=== PATIENT | female | born 1980 | race Caucasian/White ===

== ENCOUNTER 2022-10-05 08:48 | Day surgery (SDC) | payer OTHER, SELFPAY ==
[2022-09-21 13:46] VITALS: BMI 36.2
[2022-09-25 09:21] VITALS: BMI 36.1
--- NOTE | 2022-10-03 06:41 | P.HP_ITS ---
H&P: HPI History of Present Illness Date/Time: 10/03/22 06:41 Chief Complaint: excessive heavy bleeding Narrative: this is a 42-year-old female admitted for hysteroscopy dilatation curettage secondary to heavy bleeding risks and benefits reviewed in great detail. She had all questions answered and asked to proceed [facility] Social History Social History Years smoked: 20 Smoking status: Current every day smoker Tobacco type: cigarettes Alcohol intake: current Substance use: never Substance use type: does not use Living arrangements: with family Spiritual care concerns: No Meds Home Medications and Allergies Home Medications Medication Instructions Recorded Confirmed Type alendronate 70 mg-cholecalciferol 1 tablet PO WEEKLY 09/25/22 09/25/22 History (vitamin D3) 2,800 unit tablet cyanocobalamin (vitamin B-12) 500 500 mcg PO 2XW 09/25/22 09/25/22 History mcg tablet (Vitamin B-12) Allergies Allergy/AdvReac Type Severity Reaction Status Date / Time codeine AdvReac Unknown ITCHING Verified 09/25/22 09:12 hydrocodone AdvReac Unknown ITCHING Verified 09/25/22 09:12 Exam Const: General: cooperative, healthy appearing, comfortable and overweight Orientation/consciousness: oriented to person, oriented to place and oriented to time HENMT: Head: normal to inspection Resp: Effort & Inspection: normal respiratory effort Cardio: Rate: regular rate Rhythm: regular rhythm Heart sounds: S1 normal heart sound present and S2 normal heart sound present GI: Inspection: normal to inspection : External Female Exam: normal external appearance Speculum Exam - Vagina: normal appearance of the vagina Speculum Exam - Cervix: normal appearance of the cervix Bimanual exam- vagina & uterus: non-tender Bimanual Exam- Adnexa, other: normal adnexae Assessment and Plan Assessment and plan (1) Heavy menstrual bleeding: Code(s): N92.0 - Excessive and frequent menstruation with regular cycle Status: Acute Plan hysteroscopy/dilatation curettage
--- NOTE | 2022-10-05 05:52 | WPDHPUPDATE1 ---
History and Physical Update Update Date/Time: 10/05/22 05:52 History and Physical has been reviewed, including an updated exam of the patient. There are NO changes in the patient's condition. Risks, benefits, and alternatives have been discussed and questions answered. Patient agrees to proceed with procedure.
[2022-10-05 10:49] VITALS: BP 117/85; PULSE 63; RESP 14; TEMP 36.4; O2SAT 100
[2022-10-05] MEDS: LACTATED RINGERS 1,000 ML 30 ML IV CONT (11:06)
--- NOTE | 2022-10-05 11:28 | SUR.PREOP ---
In Pt's medical history it states, other anesthesia reactions: post-op fevers 72 hours after. Pt states this occurs every time she has anesthesia and has had no other symptoms other than a fever. Pt states they ran all sorts of tests and never were able to figure it out but I always do fine. Dr. Ochoa made aware, no new orders at this time.
--- NOTE | 2022-10-05 11:31 | P.PNAN_ITS ---
Anes - Initial Pre Proc Eval Procedure: Operation Date: 10/05/22 12:00 Proposed Procedures p Hysteroscopy, Dilation & Curettage with Polypectomy - Dameon Villalobos MD Date/Time: 10/05/22 11:31 Surgeon: Dameon Villalobos MD Pre Op Diagnosis: Heavy Bleeding and Uterine Polyp Patient Data Age: 42 Gender: F Height: 1.63 m Weight: 95.8 kg Last Vital Signs Temp 36.4 C L 10/05/22 10:49 Pulse 63 10/05/22 10:49 Resp 14 10/05/22 10:49 BP 117/85 10/05/22 10:49 Pulse Ox 100 10/05/22 10:49 O2 Del Method Room Air 10/05/22 10:49 Allergies Allergy/AdvReac Type Severity Reaction Status Date / Time codeine AdvReac Unknown ITCHING Verified 10/05/22 10:44 hydrocodone AdvReac Unknown ITCHING Verified 10/05/22 10:44 Home Medications Medication Instructions Recorded Confirmed Type alendronate 70 mg-cholecalciferol 1 tablet PO WEEKLY 09/25/22 10/05/22 History (vitamin D3) 2,800 unit tablet cyanocobalamin (vitamin B-12) 500 500 mcg PO 2XW 09/25/22 10/05/22 History mcg tablet (Vitamin B-12) hydrocodone 5 mg-acetaminophen 325 1 tablet PO Q4H PRN pain #10 tabs 10/05/22 Rx mg tablet Patient hx anesthesia problems: none Family hx anesthesia problems: none Results Review: All pre-operative results and documents have been reviewed as part of the pre- operative evaluation. [facility] Past Medical History Medical History Overweight Smoker Surgical History Surgical History (Updated 10/05/22 @ 11:32 by Dameon Ochoa MD) H/O exploratory laparotomy H/O oophorectomy History of bowel resection at time of oophorectomy Social History Social History Years smoked: 20 Smoking status: Current every day smoker Tobacco type: cigarettes Alcohol intake: current Substance use: never Substance use type: does not use Living arrangements: with family Spiritual care concerns: No Anes - Eval Final PreProcedure Day of Procedure 10/05/22 11:31 Patient weight: normal Heart: regular rate and rhythm Lungs: clear to auscultation Airway: Mallampati scale class II Neurological: alert and oriented Last oral intake: >/= 8 hours ASA classification: II Emergent: no Anesthetic plan: proceed Anesthesia type and monitoring: general GIVS and standard monitoring Results Review: All pre-operative results and documents have been reviewed as part of the pre- operative evaluation. Informed Consent: The patient's anesthetic plan and its attendant risks and benefits were discussed with the patient/family/POA. Questions were solicited and answers provided to the satisfaction of the patient/family/POA.
[2022-10-05] MEDS: LIDOCAINE HCL 1% LOCAL INJ 20 ML VIAL 10 ML INFILTRATE (12:08)
--- NOTE | 2022-10-05 12:15 | P.OP_ITS ---
Procedure Note - Detailed Date of Procedure 10/05/22 Pre-op Diagnosis Heavy Bleeding and Uterine Polyp Post-op Diagnosis Other (Abnormal uterine bleeding) Procedure Performed hysteroscopy/dilatation curettage Surgeon Dameon Villalobos MD Anesthesia MAC and Local Indications this is a 42-year-old female with history of very heavy periods with what appeared to be a clot on imaging. Findings Few clots were seen in the uterus. Uterus was mildly retroverted 8cm in depth. Each fallopian tube os appeared within normal limits Description of Procedure patient was prepped draped in the normal sterile fashion placed in dorsal lithotomy position. Under excellent IV sedation weighted speculum placed posterior fornix vagina. Anterior lip of the cervix grasped and tenaculum uterus sounded to 8cm 2.5cc 1% xylocaine anesthesia placed at 2 4, 8, 10:00 a.m. of the cervix. Uterus sounded 8cm. Serial dilatation with fragmented dilators followed passes the 5mm visualizing hysteroscope using normal saline as v isualizing several clots were seen in the endometrial tissue was seen but no evidence of polyp. The uterus was then scraped over the entire 360? until good grating sound was heard. Instruments were then withdrawn and the patient was awakened. She went to recovery in satisfactory condition. All sponge, needle, instrument counts were correct. Estimated Blood Loss 5 Drains No Packing No Pathology Yes Complications No immediate complications Condition Stable Disposition PACU
[2022-10-05 12:16] VITALS: BP 110/70; PULSE 63; RESP 14; TEMP 36.3; O2SAT 100
[2022-10-05] MEDS: ACETAMINOPHEN 500 MG TABLET 1000 MG PO (12:24)
[2022-10-05 12:26] VITALS: BP 111/72; PULSE 80; RESP 16; O2SAT 99
--- NOTE | 2022-10-05 12:27 | WPDANESPN ---
Anes - Prog Note Post-Op Date/Time: 10/05/22 12:27 Cardiovascular status: normal Respiratory status: normal Airway patency: baseline Mental status: baseline Post-Op hydration status: normal Vital Signs: Last Vital Signs Temp 36.3 C L 10/05/22 12:16 Pulse 63 10/05/22 12:16 Resp 14 10/05/22 12:16 BP 110/70 10/05/22 12:16 Pulse Ox 100 10/05/22 12:16 O2 Del Method Room Air 10/05/22 12:16 Pain Score (VAS): 0/10 Patient Feedback: Patient satisfied with anesthetic care.
--- NOTE | 2022-10-05 12:30 | SUR.PHASEII ---
tylenol given per order for mild headache, patient reports 0/10 pain related to procedure
[2022-10-05 12:36] VITALS: BP 112/75; PULSE 74; RESP 16; O2SAT 97
--- NOTE | 2022-10-05 12:45 | SUR.PHASEII ---
prescription given to patient for hydrocodone/tylenol. md aware of patient's allergy.
[2022-10-05 12:56] VITALS: BP 112/74; PULSE 76; RESP 16; O2SAT 100
== END 2022-10-05 13:01 | disposition home or self-care (01) ==
PROVIDERS: PCP Physician Assistant; Visit Provider Obstetrics & Gynecology
PROC: 0U5B8ZZ Destruction of Endometrium, Via Natural or Artificial Opening Endoscopic (ICD-10-PCS; CPT 58563; principal; 2022-10-05 12:00)
DX: N93.8 Other specified abnormal uterine and vaginal bleeding (principal)
CPT/HCPCS: 58558

== ENCOUNTER 2022-10-05 09:00 | Outpatient (NON) | payer OTHER, SELFPAY | END 2022-10-05 09:01 | disposition home or self-care (01) | PROVIDERS: PCP Physician Assistant; Visit Provider Obstetrics & Gynecology | DX: D26.1 Other benign neoplasm of corpus uteri (principal) | CPT/HCPCS: 88305 ==

== ENCOUNTER 2022-12-26 12:23 | Outpatient (CLI) | payer OTHER, SELFPAY ==
[2022-12-26 13:02] LABS: Basophils Absolute Auto 0.1 K/mm3 (0.0-0.1); Basophils Percent Auto 0.8 % (0.2-1.2); Eosinophils Absolute Auto 0.2 K/mm3 (0-0.3); Eosinophils Percent Auto 2.7 % (0-4.4); Hemoglobin 13.2 g/dL (12.0-15.0); Immature Granulocyte Absolute 0.02 K/mm3 (0.00-0.031); Immature Granulocyte Percent A 0.3 % (0-0.5); Lymphocytes Absolute Auto 2.49 K/mm3 (0.9-3.2); Lymphocytes Percent Auto 32.5 % (18.3-44.2); Mean Corpuscular HGB Conc 32.2 g/dl (32-36); Mean Corpuscular Volume 93.2 fl (80-100); Mean Platelet Volume 10.2 fl (7.4-10.4); Monocytes Absolute Auto 0.4 K/mm3 (0.1-0.6); Monocytes Percent Auto 5.7 % (2.6-8.5); Neutrophils Absolute Auto 4.4 K/mm3 (1.3-6.7); Platelet Count Result 269 k/mm3 (150-375); Red Cell Distribution Width 12.7 % (11.5-14.5); White Blood Count 7.7 K/mm3 (4.5-10.0)
== END 2022-12-26 12:24 | disposition home or self-care (01) ==
PROVIDERS: PCP Physician Assistant; Visit Provider Obstetrics & Gynecology
DX: Z01.818 Encounter for other preprocedural examination (principal); N92.0 Excessive and frequent menstruation with regular cycle
CPT/HCPCS: 36415; 85025; 86850; 86900; 86901

== ENCOUNTER 2022-12-29 02:54 | Day surgery (SDC) | payer OTHER, SELFPAY ==
[2022-12-25 14:42] VITALS: BMI 36.3
--- NOTE | 2022-12-25 14:47 | PC.NURSE ---
Report to the Outpatient Waiting Room, entrance under the green pavilion located off [facility], at time 7:30 on date 12/29/22. Planned Procedure Time: 9:30. Time changes happen often and if your time is changed the preop area will call you the afternoon before. - You and your visitor will be asked to self-screen and do not enter if you have any COVID symptoms. - A mask is optional within the hospital at this time. Patients may have clear liquids (water, carbonated beverages, clear teas, apple juice) until 3 hours (6:30) prior to surgery with a maximum of 20 ounces. - No food from midnight until time of surgery Take the following medications with a SIP of water the morning of surgery: NONE DO NOT STOP ANY OF YOUR OTHER PRESCRIPTION MEDICATIONS PRIOR TO SURGERY ?EXCEPT THE FOLLOWING Medications to discontinue per physician: VITAMINS/SUPPLEMENTS Date to take last dose: 12/25/22 Please no make-up, nail [place], hairspray, perfume, deodorant, or body powder the day of surgery. No jewelry (including any body piercings) or valuables the day of surgery, leave them at home. Please take a shower or bath the night before, or the morning of, surgery with an antibacterial soap. Wear comfortable, loose fitting clothing. - Jewelry must be removed prior to entering the operating room. Rings and piercings that are not removed may be cut off. - The hospital will not accept responsibility for valuables. - Please leave all valuables, including medications, at home the day of surgery. If you are going home after surgery, a licensed local company hazmat driver must drive you home. - NO public transportation without another adult if you receive anesthesia. - We recommend that an adult stay with you for 24 hours following discharge. - We also recommend that you do not drive, make important decision, drink alcoholic beverages, or take any drugs that were not prescribed by your health care provider for at least 24 hours after your discharge time. Follow any additional instructions given to you from your surgeon. If you or anyone in your household have experienced Covid symptoms in the past week, please notify your surgeon or the nurse liaison at the phone number below for possible testing. Telephone instructions given to PT - REESE HO and asked if any additional questions and then verbalized understanding. Patient advised to call surgeon office or pre surgery nurse liaison [phone] if any additional questions.
--- NOTE | 2022-12-26 16:13 | PM.IMHP ---
H&P: HPI History of Present Illness Date/Time: 12/26/22 16:13 Chief Complaint: Pelvic pain/uterine prolapse/irregular vaginal bleeding Narrative: This is a 42-year-old female 3 para 2 who is admitted for robotic hysterectomy and bilateral salpingectomy secondary to bleeding pain and uterine prolapse. She had a hysteroscopy dilatation curettage bleeding stopped and then restarted and the problem continued and she bled irregularly she the prolapse was started on progesterone and again this was unable to stop bleeding and discomfort. She will undergo hysterectomy and bilateral salpingectomy. Risks and benefits were reviewed including not exclusive of , aspiration, bleeding, transfusion, perforation of bowel, bladder, ureters, or other internal organs with need for open laparotomy. She received the [employer] handout entitled hysterectomy as well a divot G and out. She had all questions answered. She asked to proceed. [facility] Past Medical History Medical History Overweight Smoker Surgical History Surgical History H/O exploratory laparotomy H/O oophorectomy History of bowel resection at time of oophorectomy Social History Social History Years smoked: 10 Smoking status: Current some day smoker Tobacco type: cigarettes Alcohol intake: current Alcohol use details: VERY RARE Substance use: never Substance use type: does not use Living arrangements: with family Spiritual care concerns: No Meds Home Medications and Allergies Home Medications Medication Instructions Recorded Confirmed Type cyanocobalamin (vitamin B-12) 500 500 mcg PO 2XW 09/25/22 12/25/22 History mcg tablet (Vitamin B-12) cetirizine 10 mg tablet (Zyrtec) 10 mg PO DAILY 12/25/22 12/25/22 History Allergies Allergy/AdvReac Type Severity Reaction Status Date / Time codeine Allergy Unknown Rash Verified 12/25/22 14:40 hydrocodone Allergy Unknown Rash Verified 12/25/22 14:40 Exam Const: General: cooperative, healthy appearing and comfortable Nutritional Appearance: overweight Orientation/consciousness: oriented to person, oriented to place and oriented to time HENMT: Head: normal to inspection Resp: Effort & Inspection: normal respiratory effort Cardio: Rate: regular rate Rhythm: regular rhythm Heart sounds: S1 normal heart sound present and S2 normal heart sound present GI: Inspection: normal to inspection : External Female Exam: normal external appearance Speculum Exam - Vagina: normal appearance of the vagina Speculum Exam - Cervix: normal appearance of the cervix Bimanual exam- vagina & uterus: enlarged and Uterine tenderness Bimanual Exam- Adnexa, other: normal adnexae Assessment and Plan Assessment and plan (1) Pelvic pain: Code(s): R10.2 - Pelvic and perineal pain Status: Acute (2) Excessive bleeding: Code(s): R58 - Hemorrhage, not elsewhere classified Status: Acute (3) Uterine prolapse: Code(s): N81.4 - Uterovaginal prolapse, unspecified Status: Acute Plan Robotic total vaginal hysterectomy and bilateral salpingectomy
[2022-12-29] VITALS (9 sets, daily range): BP systolic 100–130; BP diastolic 58–79; PULSE 53–82; RESP 14–18; TEMP 36.1–36.8; O2SAT 94–100
--- NOTE | 2022-12-29 06:42 | WPDHPUPDATE1 ---
History and Physical Update Update Date/Time: 12/29/22 06:42 History and Physical has been reviewed, including an updated exam of the patient. There are NO changes in the patient's condition. Risks, benefits, and alternatives have been discussed and questions answered. Patient agrees to proceed with procedure.
[2022-12-29] MEDS: ACETAMINOPHEN 500 MG TABLET 1000 MG PO (08:00)
[2022-12-29] MEDS: KETOROLAC 15 MG/ML VIAL (*BKC) IV PUSH (08:00)
[2022-12-29] MEDS: LACTATED RINGERS 1,000 ML 30 ML IV CONT ×2 (08:00→10:48)
--- NOTE | 2022-12-29 08:23 | WPDANESEPPF ---
Anes - Initial Pre Proc Eval Procedure: Operation Date: 12/29/22 09:30 Proposed Procedures p Robotic Assisted Total Vaginal Hysterectomy with Bilateral Salpingectomy - Dameon Villalobos MD Date/Time: 12/29/22 08:23 Surgeon: Dameon Villalobos MD Pre Op Diagnosis: Pain, Uterine Prolapse, Bleeding Patient Data Age: 42 Gender: F Height: 1.63 m Weight: 96.2 kg Allergies Allergy/AdvReac Type Severity Reaction Status Date / Time codeine Allergy Unknown Rash Verified 12/29/22 08:24 hydrocodone Allergy Unknown Rash Verified 12/29/22 08:24 Home Medications Medication Instructions Recorded Confirmed Type cyanocobalamin (vitamin B-12) 500 500 mcg PO 2XW 09/25/22 12/25/22 History mcg tablet (Vitamin B-12) cetirizine 10 mg tablet (Zyrtec) 10 mg PO DAILY 12/25/22 12/25/22 History oxycodone-acetaminophen 5 mg-325 1 tablet PO Q4H PRN pain #30 tabs 12/29/22 Rx mg tablet (Percocet) Patient hx anesthesia problems: none Family hx anesthesia problems: none Results Review: All pre-operative results and documents have been reviewed as part of the pre-operative evaluation. [facility] Past Medical History Medical History Overweight Smoker Surgical History Surgical History H/O exploratory laparotomy H/O oophorectomy History of bowel resection at time of oophorectomy Social History Social History Years smoked: 10 Smoking status: Current some day smoker Tobacco type: cigarettes Alcohol intake: current Alcohol use details: VERY RARE Substance use: never Substance use type: does not use Living arrangements: with family Spiritual care concerns: No Anes - Eval Final PreProcedure Day of Procedure 12/29/22 08:23 Patient weight: obese Heart: regular rate and rhythm Lungs: clear to auscultation Airway: Mallampati scale class II Neurological: alert and oriented Last oral intake: >/= 8 hours ASA classification: II Emergent: no Anesthetic plan: proceed Anesthesia type and monitoring: general ETT and standard monitoring Results Review: All pre-operative results and documents have been reviewed as part of the pre-operative evaluation. Informed Consent: The patient's anesthetic plan and its attendant risks and benefits were discussed with the patient/family/POA. Questions were solicited and answers provided to the satisfaction of the patient/family/POA.
[2022-12-29] MEDS: ceFAZolin 2 GM/D5W 50 ML 2 GM/50 ML BAG IVPB (09:17)
--- NOTE | 2022-12-29 10:28 | W.PM.PROC2 ---
Procedure Note - Detailed Date of Procedure 12/29/22 Pre-op Diagnosis Pain, Uterine Prolapse, Bleeding Post-op Diagnosis Same Procedure Performed Were vaginal hysterectomy salpingectomy extensive lysis adhesions Surgeon Dameon Villalobos MD Anesthesia General Indications This 42-year-old bleeding/pain/dyspareunia Findings The right adnexa was surgically absent colon to posterior surface of left adnexa moderate-sized left cyst which was simple in nature. Was a hydrosalpinx. Description of Procedure Patient was prepped draped sterile fashion placed in dorsal lithotomy position. General trach anesthesia weighted speculum placed posterior fornix. Anterior lip cervix uterus sounded 10cm. Serial dilatation regular followed passes the 8. ALEXX and the 3. 0.5 cold cup. Next the 16 [place] catheter was placed in bladder urine. The weighted speculum was gloves were changed. A supraumbilical incision made. Veress needle passed in the abdomen. Abdomen filled with CO2 gas [id number]. The 8mm trocar advanced in the abdomen. Downside visualized no injury seen. Gas reattached. Patient placed in 20? Trendelenburg and left and right quadrant incisions were made 8mm trocars advanced under direct visualization. A right upper quadrant incision made the 8mm trocar advanced under direct visualization assuring no injury. The robot was docked. Attention was turned to the weight loss counselor. The right adnexa was surgically absent. The uterus was large and irregular consistent with a fibroid uterus. Adhesions from the colon to the anterior abdominal wall were undertaken taken these were sharply dissected without difficulty. The small and large bowel were markedly adherent to the top of the uterus and using serial dissection with monopolar cautery and stretching this was eventually cleared. A huge left hydrosalpinx was noted and this was a dissected away from the ovarian complex. There was a moderate-sized cyst in the left ovary which was markedly adherent in to the posterior wall of the uterus. This was sharply dissected until cleared. The fallopian tube was then passed off to the right lower quadrant incision. Next the utero-ovarian ligament on the left was skeletonized clamping burning cutting and bringing this to level of previously cut round ligament. Next the cardinal broad ligaments on the left were serially skeletonized clamping burning cutting and hugging the cervix and uterus until the low large uterine vessels were noted. These were individually clamped, burned, cut. In like fashion the cardinal and broad ligaments were skeletonized on the right these were serially clamped burned and cut hugging the cervix uterus until the large tortuous vessels were seen on the right. These were individually clamped, burned, cut. Blanching of the uterus was noted. A colpotomy incision was made and the cervix and uterus removed through the vagina. The vagina was then closed with continuous running 0V lock from lateral edge to lateral edge back to the midline. Irrigation undertaken until clear blood loss estimated at5cc 25cc. The instruments removed after the gas was removed from the abdomen the robot was undocked. The incisions were closed with 4 Monocryl and glue. The patient went to recovery in satisfactory condition. All sponge, needle, instrument counts were correct. There were no immediate complications noted Estimated Blood Loss 25 Drains No Packing No Pathology Yes Complications No immediate complications Condition Stable Disposition PACU
--- NOTE | 2022-12-29 10:32 | PM.DS ---
DS: Admitting Diagnosis Discharge Date 12/30/2022 Admitting Diagnosis Uterine prolapse/pelvic pain/heavy bleeding/dyspareunia/pelvic adhesions DS: Discharge Diagnosis Discharge Diagnosis (1) Uterine prolapse: Code(s): N81.4 - Uterovaginal prolapse, unspecified Status: Acute (2) Excessive bleeding: Code(s): R58 - Hemorrhage, not elsewhere classified Status: Acute (3) Pelvic pain: Code(s): R10.2 - Pelvic and perineal pain Status: Acute (4) Heavy menstrual bleeding: Code(s): N92.0 - Excessive and frequent menstruation with regular cycle Status: Acute DS: Summary Hospital Course Reason for hospitalization: Patient was admitted for robotic hysterectomy left salpingectomy. Hospital Course: Patient underwent robotic total vaginal hysterectomy left salpingectomy with extensive lysis of adhesions on 12/29/2022. Her hospital course unremarkable. She remained afebrile. She was up, voiding without difficulty, eating regular diet, ambulating, in generally thought complaints. Time Spent with Patient Time attestation: Total time spent providing and/or coordinating discharge services: Exam Const: General: cooperative, healthy appearing and comfortable Orientation/consciousness: oriented to person, oriented to place and oriented to time HENMT: Head: normal to inspection Resp: Effort & Inspection: normal respiratory effort Cardio: Rate: regular rate Rhythm: regular rhythm Heart sounds: S1 normal heart sound present and S2 normal heart sound present GI: Inspection: normal to inspection and incision (Wounds are clean dry and intact) DS: Data Data Completed and Pending Pending studies at discharge: Pending at discharge 12/29/22 10:17 Surgical [PTH] Routine Discharge Plan Discharge Patient Disposition: Home, Self-Care Stand Alone Forms: General Discharge Instructions Follow-up/Referrals: Dameon Marcus MD [Physician] - Discharge Medications: New oxycodone-acetaminophen [Percocet] 5-325 mg tablet 1 tablet PO Q4H PRN (Reason: pain) Qty: 30 0RF No Action cetirizine [Zyrtec] 10 mg Tablet 10 mg PO DAILY cyanocobalamin (vitamin B-12) [Vitamin B-12] 500 mcg Tablet 500 mcg PO 2XW
[2022-12-29] MEDS: fentaNYL CITRATE INJ (*CRX) 100 MCG/2 ML VIAL 25 MCG IV PUSH ×4 (11:14→11:40)
--- NOTE | 2022-12-29 11:50 | PC.NURSE ---
This patient, Kimberly Love, was received from PACU on 12/29/22 at 1150. Patient/family oriented to unit policies and routines
[2022-12-29] MEDS: DEXTROSE 5%/LACTATED RINGERS 1,000 ML 125 ML IV CONT (12:07)
[2022-12-29] MEDS: KETOROLAC 30 MG/ML VIAL (*BKC) IV PUSH (12:09)
[2022-12-29] MEDS: oxyCODONE/ACETAMINOPHEN (*CRX) 5-325 MG TABLET 1 TABLET PO ×2 (16:00→20:18)
[2022-12-29] MEDS: DOCUSATE SODIUM 100 MG CAPSULE PO (16:00)
[2022-12-29] MEDS: SIMETHICONE 80 MG TAB.CHEW PO (16:01)
[2022-12-30] VITALS: BP 108/62; PULSE 82; RESP 18; TEMP 36.7; O2SAT 94
[2022-12-30] MEDS: oxyCODONE/ACETAMINOPHEN (*CRX) 5-325 MG TABLET 1 TABLET PO ×2 (03:50→09:37)
[2022-12-30 04:00] VITALS: BP 119/70; PULSE 71; RESP 18; TEMP 36.9; O2SAT 95
[2022-12-30 05:30] LABS: Basophils Percent Auto 0.2 % (0.2-1.2); Eosinophils Percent Auto 0.1 % (0-4.4); Hematocrit 35.2 % (37.0-47.0); Hemoglobin 11.2 g/dL (12.0-15.0); Immature Granulocyte Absolute 0.08 K/mm3 (0.00-0.031); Immature Granulocyte Percent A 0.5 % (0-0.5); Lymphocytes Absolute Auto 2.09 K/mm3 (0.9-3.2); Lymphocytes Percent Auto 12.9 % (18.3-44.2); Mean Corpuscular HGB Conc 31.8 g/dl (32-36); Mean Corpuscular Hemoglobin 29.8 pg (26-34); Mean Corpuscular Volume 93.6 fl (80-100); Monocytes Absolute Auto 0.7 K/mm3 (0.1-0.6); Monocytes Percent Auto 4.6 % (2.6-8.5); Neutrophils Absolute Auto 13.3 K/mm3 (1.3-6.7); Neutrophils Percent Auto 81.7 % (45.5-73.1); Platelet Count Result 255 k/mm3 (150-375); Red Blood Count 3.76 M/mm3 (4.2-5.4); Red Cell Distribution Width 12.9 % (11.5-14.5); White Blood Count 16.2 K/mm3 (4.5-10.0)
[2022-12-30 08:00] VITALS: BP 108/69; PULSE 65; RESP 16; TEMP 37.1; O2SAT 96
--- NOTE | 2022-12-30 08:06 | PM.GYNPNOP ---
[employer] - A/P Assessment and plan (1) Uterine prolapse: Code(s): N81.4 - Uterovaginal prolapse, unspecified Status: Acute Assessment and Plan: A: POD#1, doing well. P: Home to f/u 2 weeks. (2) Excessive bleeding: Code(s): R58 - Hemorrhage, not elsewhere classified Status: Acute (3) Pelvic pain: Code(s): R10.2 - Pelvic and perineal pain Status: Acute (4) Heavy menstrual bleeding: Code(s): N92.0 - Excessive and frequent menstruation with regular cycle Status: Acute Postoperative Procedures: Procedures Operation Date: 12/29/22 09:30 Actual Procedure Side Surgeon p Robotic Assisted Total Vaginal Hysterectomy with Left Salpingectomy, Lysis of Adhesions Bilateral Dameon Villalobos MD Time Spent With Patient Time with patient: less than 15 minutes [employer]- PN:Subj Post-Op Subjective Date/time seen: 12/30/22 08:06 Interval history: Pain OK. Tolerating diet. Voiding. Would like to go home. Exam Narrative: AVSS I/O OK ABD soft, nontender. Incisions c/d/i. EXT nontender [employer]IST - PN: Obj Data Vital Signs Vital Signs: Vital Signs - 24 hr 12/29/22 08:25 12/29/22 10:48 12/29/22 11:00 Temperature 36.2 C L 36.2 C L Pulse Rate 65 77 60 Respiratory Rate 16 14 16 Blood Pressure 130/79 109/58 L 118/71 Pulse Oximetry 100 100 100 Oxygen Delivery Room Air Simple Face Mask Simple Face Mask Oxygen Flow Rate 6 6 12/29/22 11:15 12/29/22 11:20 12/29/22 11:30 Temperature Pulse Rate 60 58 L Respiratory Rate 16 16 Blood Pressure 112/62 100/61 Pulse Oximetry 100 94 Oxygen Delivery Simple Face Mask Room Air Room Air Oxygen Flow Rate 6 12/29/22 11:45 12/29/22 12:00 12/29/22 15:45 Temperature 36.1 C L 36.2 C L 36.8 C Pulse Rate 53 L 56 L 62 Respiratory Rate 14 16 16 Blood Pressure 103/62 102/61 116/72 Pulse Oximetry 95 98 97 Oxygen Delivery Room Air Oxygen Flow Rate 12/29/22 20:00 12/30/22 00:00 12/30/22 04:00 Temperature 36.5 C 36.7 C 36.9 C Pulse Rate 82 82 71 Respiratory Rate 18 18 18 Blood Pressure 108/65 108/62 119/70 Pulse Oximetry 96 94 95 Oxygen Delivery Oxygen Flow Rate Intake/Output Intake/Output: Intake & Output 12/27/22 12/28/22 12/29/22 12/30/22 23:59 23:59 23:59 23:59 Intake Total 2470 Output Total 1975 250 Balance 495 -250 Meds/Results Medications: Active Medications Generic Name Dose Route Start Last Admin Trade Name Freq PRN Reason Stop Dose Admin Docusate Sodium 100 mg 12/29/22 17:00 12/29/22 16:00 Docusate Sodium 100 Mg Capsule PO 100 mg BID LIGIA Administration Enoxaparin Sodium 40 mg 12/30/22 09:00 Enoxaparin 40 Mg/0.4 Ml Syringe SUB-Q DAILY LIGIA Dextrose/Lactated Ringer's 1,000 mls @ 125 mls/hr 12/29/22 11:46 12/29/22 12:07 Dextrose 5%/Lactated Ringers IV CONT 125 mls/hr .Q8H LIGIA Administration Ibuprofen 600 mg 12/29/22 11:46 Ibuprofen 600 Mg Tablet PO Q6H PRN Cramping Ketorolac Tromethamine 30 mg 12/29/22 11:46 12/29/22 12:09 Ketorolac 30 Mg/Ml Vial (*Bkc) IV PUSH 01/03/23 11:45 30 mg Q6H PRN Administration Pain Rated 4-6 Naloxone HCl 0.1 mg 12/29/22 11:46 Naloxone Hcl 0.4 Mg/Ml Vial IV PUSH Q2M PRN Respiratory rate less than 10 Ondansetron HCl 4 mg 12/29/22 11:46 Ondansetron Inj 4 Mg/2 Ml Vial IV PUSH Q6H PRN Nausea And Vomiting Oxycodone/Acetaminophen 1 tab 12/29/22 13:20 Oxycodone/Acetaminophen (*Crx) 10-325 Mg Tablet PO Q4H PRN Pain Rated 6 or Greater Oxycodone/Acetaminophen 1 tablet 12/29/22 13:20 12/30/22 03:50 Oxycodone/Acetaminophen (*Crx) 5-325 Mg Tablet PO 1 tablet Q4H PRN Administration Pain Rated 5 or Less Simethicone 80 mg 12/29/22 11:46 12/29/22 16:01 Simethicone 80 Mg Tab.Chew PO 80 mg Q2H PRN Administration Gas Labs 12/30/22 03:52 Labs: Laboratory Results - last 24 h
--- NOTE | 2022-12-30 08:07 | P.DS_ITS ---
DS: Admitting Diagnosis Discharge Date 12/30/22 Admitting Diagnosis Uterine prolapse, heavy bleeding, pelvic pain DS: Discharge Diagnosis Discharge Diagnosis (1) Uterine prolapse: Code(s): N81.4 - Uterovaginal prolapse, unspecified Status: Acute (2) Excessive bleeding: Code(s): R58 - Hemorrhage, not elsewhere classified Status: Acute (3) Pelvic pain: Code(s): R10.2 - Pelvic and perineal pain Status: Acute DS: Summary Hospital Course Hospital Course: Admitted on date of scheduled surgery. Did well and home on POD1. Time Spent with Patient Time attestation: Total time spent providing and/or coordinating discharge services: DS: Data Data Completed and Pending Pending studies at discharge: Pending at discharge 12/29/22 10:17 Surgical [PTH] Routine Surgical [PTH] Routine Labs on day of discharge: Labs from last 24 hours 12/30/22 03:52 WBC 16.2 H RBC 3.76 L Hgb 11.2 L Hct 35.2 L MCV 93.6 MCH 29.8 MCHC 31.8 L RDW 12.9 Plt Count 255 MPV 11.0 H Immature Gran % (Auto) 0.5 Neut % (Auto) 81.7 H Lymph % (Auto) 12.9 L [place] % (Auto) 4.6 Eos % (Auto) 0.1 Baso % (Auto) 0.2 Lymph # (Auto) 2.09 [place] # (Auto) 0.7 H Eos # (Auto) 0.0 Baso # (Auto) 0.0 Abs Immat Gran (auto) 0.08 H Absolute Neuts (auto) 13.3 H Absolute Nucleated RBC 0.0 Nucleated RBC % 0.0 Discharge Plan Discharge Patient Disposition: Home, Self-Care Discharge Instructions: Nothing in the vagina for 6 weeks. Call or return if temperature above 100.4? F, increased abdominal pain, increased vaginal bleeding or any new problems. Stand Alone Forms: General Discharge Instructions Follow-up/Referrals: Dameon Marcus MD [Physician] - 2 Weeks Discharge Medications: New oxycodone-acetaminophen [Percocet] 5-325 mg tablet 1 tablet PO Q4H PRN (Reason: pain) Qty: 30 0RF Continued cetirizine [Zyrtec] 10 mg Tablet 10 mg PO DAILY cyanocobalamin (vitamin B-12) [Vitamin B-12] 500 mcg Tablet 500 mcg PO 2XW
[2022-12-30] MEDS: ENOXAPARIN 40 MG/0.4 ML SYRINGE SUB-Q (09:37)
[2022-12-30] MEDS: SIMETHICONE 80 MG TAB.CHEW PO (09:37)
[2022-12-30] MEDS: DOCUSATE SODIUM 100 MG CAPSULE PO (09:38)
== END 2022-12-30 10:25 | disposition home or self-care (01) ==
LOC: ANHSURGERY 07:20 → ANHOB2 11:51
PROVIDERS: PCP Physician Assistant; Visit Provider Obstetrics & Gynecology
PROC: (CPT 58552; principal; 2022-12-29 09:30)
DX: N92.0 Excessive and frequent menstruation with regular cycle (principal); N83.8 Other noninflammatory disorders of ovary, fallopian tube and broad ligament; N80.03 Adenomyosis of the uterus; D25.1 Intramural leiomyoma of uterus; N72 Inflammatory disease of cervix uteri; F17.210 Nicotine dependence, cigarettes, uncomplicated; Z79.891 Long term (current) use of opiate analgesic; E66.9 Obesity, unspecified; Z68.37 Body mass index [BMI] 37.0-37.9, adult
CPT/HCPCS: 58552; S2900; 36415; 85025; 86850; 86900; 86901; 88307; 99199; A9270; J0690; J1100; J1170; J1200; J1650; J1885; J2250; J2405; J2704; J3010; J7030; J7120; J7121